=== PATIENT | female | born 1950 | race Caucasian/White ===

== ENCOUNTER 2022-04-14 11:35 | Emergency (ER) | payer BC, SELFPAY ==
[2022-04-14 12:10] VITALS: BP 128/79; PULSE 65; RESP 16; TEMP 36.4; O2SAT 95; BMI 36.1
--- NOTE | 2022-04-14 12:46 | CRLHL7_ITS ---
For Patients: As a result of the Century Cures Act, medical imaging exams and procedure reports are released immediately into your electronic medical record. You may view this report before your referring provider. If you have questions, please contact your health care provider. INDICATION: Right upper quadrant abdomen pain. TECHNIQUE: Ultrasound abdomen limited. Sonographic images of the right upper quadrant were obtained using roman-scale and color Doppler images. COMPARISON: None. FINDINGS: Liver: Normal in size with increased echotexture. No suspicious masses. No intrahepatic biliary dilatation. Gallbladder: No stones or sludge. Normal wall thickness. No pericholecystic fluid. Common bile duct: 1 cm. Pancreas: Partially obscured due to bowel gas artifact. Right kidney: Normal in size. Normal echotexture and cortex. No suspicious masses, stones, or hydronephrosis. Vasculature: Proximal abdominal aorta and IVC are unremarkable. IMPRESSION: 1. The common bile duct measures 1 cm which is borderline prominent. Recommend correlation with laboratory data. 2. No evidence of acute cholecystitis. 3. Hepatic steatosis. Dictated by Yung Menon MD @ 04/14/2022 3:03:35 PM (Electronically Signed)
[2022-04-14 13:16] LABS: Basophils Absolute Auto 0.06 K/uL (0.00-0.30); Eosinophils Percent Auto 5.1 % (0.0-7.0); Hematocrit 38.9 % (33.0-51.0); Hemoglobin* 12.8 gm/dL (12.0-16.0); Lymphocytes Percent Auto 47.2 % (20-44); Mean Corpuscular HGB Conc 33 gm/dL (32-36); Mean Corpuscular Hemoglobin 31 pg (26-34); Mean Corpuscular Volume 94 fL (80-100); Monocytes Percent Auto 10.1 % (0.0-11.0); Neutrophils Percent Auto 36.6 % (42.0-72.0); Platelet Count* 256 K/uL (140-440); RDW Coefficient of Variation % 13.2 % (11.5-15.5); Red Blood Count 4.14 m/uL (4.00-5.20); Slide Review Reflex No; White Blood Count* 5.83 K/uL (4.50-11.00)
[2022-04-14 13:29] LABS: Albumin* 4.3 g/dL (3.3-5.0); Chloride* 105 mmol/L (96-114); Potassium* 4.4 mmol/L (3.6-5.1); Sodium* 137 mmol/L (135-149)
[2022-04-14 13:31] LABS: Creatinine* 0.8 mg/dL (0.5-1.5); Est. Creatinine Clearance* 37.06; Estimated Glomerular Filt Rate 79 ml/min
[2022-04-14 13:32] LABS: Alanine Aminotransferase* 40 U/L (4-35); Alkaline Phosphatase* 69 U/L (40-150); Aspartate Amino Transferase* 40 U/L (12-35); Bilirubin Direct* 0.1 mg/dL (0.0-0.5); Bilirubin Total* 0.5 mg/dL (0.1-1.5); Blood Urea Nitrogen* 17 mg/dL (7-30); Calcium* 9.3 mg/dL (8.4-10.6); Carbon Dioxide* 23 mmol/L (20-32); Glucose* 93 mg/dL (60-115); Lipase* 76 U/L (23-300); Total Protein* 7.1 g/dL (6.0-8.3)
[2022-04-14 13:35] LABS: C Reactive Protein* 0.6 mg/dL (0.5-1.0)
[2022-04-14 13:56] LABS: Troponin I* < 0.01 ng/mL (0.01-0.04)
[2022-04-14 14:00] LABS: Erythrocyte SedimentationRate* 10 mm/hr (2-20)
[2022-04-14 14:16] VITALS: BP 110/73; PULSE 63; RESP 18; TEMP 37; O2SAT 96
--- NOTE | 2022-04-14 15:17 | ED_ITS ---
HPI - General Adult General Chief complaint: Abdominal Pain Stated complaint: RUQ pain Time Seen by Provider: 04/14/22 12:35 Source: patient Mode of arrival: ambulatory Limitations: no limitations History of Present Illness HPI narrative: Car[place] 71-year-old female coming in today concerned about abdominal pain that she noticed this morning when she woke up. Pain is located in the right upper quadrant of the abdomen and does not radiate. Nothing seems to make it better or worse. It was constant in the morning and then in the early afternoon it would come and go. She did not eat anything today. She had [place] food for dinner last night. She denies nausea or vomiting. No fevers or chills. No diarrhea or constipation. No changes in her urinary habits. No new physical activities that she is aware of. The pain is bad enough that she notices it, not bad enough that it keeps her from doing any her daily activities. She states that she does have a history of fatty liver disease nonalcoholic, hiatal hernia, ocular migraines, hyperlipidemia, hypertension. She denies any intra-abdominal surgeries in the past. Related Data Home Medications Medication Instructions Recorded Confirmed bupropion HCl 150 mg 24 hr tablet, mg PO 04/14/22 extended release escitalopram oxalate 20 mg tablet mg 04/14/22 estradiol 0.01% (0.1 mg/gram) vaginal 04/14/22 vaginal cream lisinopril 5 mg tablet mg 04/14/22 omeprazole 20 mg capsule,delayed mg 04/14/22 release propranolol 20 mg tablet mg 04/14/22 simvastatin 40 mg tablet mg 04/14/22 Allergies Allergy/AdvReac Type Severity Reaction Status Date / Time clarithromycin [From Biaxin] Allergy Verified 04/14/22 12:09 codeine Allergy Verified 04/14/22 12:09 Review of Systems Status of ROS: Reports: 10 or more systems reviewed and unremarkable except as noted in History and below PFSH PFS Social History Smoking Status: Never smoker Do you use any of these nicotine containing products: None Second hand tobacco smoke exposure: No How often do you have a drink containing alcohol: 2-3 times a week How many standard drinks containing alcohol do you have on a typical day: 1 or 2 How often do you have six or more drinks on one occasion: Never AUDIT-C Alcohol total score: 3 Non-prescribed substance use: denies use service: No Exam Narrative: Exam Narrative: Well-nourished well-developed patient in no acute distress. Alert and oriented. Answers questions appropriately. Mood and affect are appropriate. Thoughts are goal oriented and rational. No tangential or magical thinking noted. Patient speaks in full sentences without needing to catch her breath. She does not appear ill or toxic. HEENT: Normocephalic atraumatic. Pupils are equally round reactive to light. Extraocular muscles are intact. Conjunctivae are moist without any icterus noted. Moist mucous membranes. Posterior pharynx is normal. Neck is soft without any lymphadenopathy or thyromegaly. No masses are appreciated. Cardiovascular: Heart is regular rate and rhythm S1 and S2 are present without any murmurs. Lungs: Clear to auscultation bilaterally no wheezes rhonchi or rales are appreciated. Patient takes deep breaths without any discomfort. Her pain is not reproducible on deep inspirations. Abdomen: Soft and nontender nondistended with normal bowel sounds. No guarding or rebound. No masses or organomegaly appreciated. Negative Hamlin sign. I cannot reproduce her pain on palpation of the abdomen. She has no CVA tenderness. Extremities: Bilateral lower extremities are without edema. Normal DP and PT pulses. Skin: Well perfused without any obvious rashes. Const: Vital Signs, click to edit/add: Vital Signs - 24 hr 04/14/22 12:10 04/14/22 14:16 Temperature 97.5 F L 98.6 F Pulse Rate [Right Pulse Oximeter] 65 63 Respiratory Rate 16 18 Blood Pressure [Ri ght Upper Arm] 128/79 110/73 Pulse Oximetry 95 96 Oxygen Delivery Me thod Room Air Room Air Course Course Hospital Course: Workup today included labs, EKG, right upper quadrant ultrasound and chest x-ray-all were within normal limits. Vital Signs Vital signs: Initial Vital Signs Temperature 97.5 F L 04/14/22 12:10 Temperature Source Temporal Artery Scan 04/14/22 12:10 Pulse Rate 65 04/14/22 12:10 Respiratory Rate 16 04/14/22 12:10 Blood Pressure 128/79 04/14/22 12:10 Blood Pressure Mean 95 04/14/22 12:10 Blood Pressure Position Sitting 04/14/22 12:10 Pulse Oximetry 95 04/14/22 12:10 Oxygen Delivery Method 04/14/22 12:10 Vital Signs Temperature 97.5 F L 04/14/22 12:10 Pulse Rate 65 04/14/22 12:10 Respiratory Rate 16 04/14/22 12:10 Blood Pressure 128/79 04/14/22 12:10 Pulse Oximetry 95 04/14/22 12:10 Oxygen Delivery Method 04/14/22 12:10 Temperature 98.6 F 04/14/22 14:16 Pulse Rate 63 04/14/22 14:16 Respiratory Rate 18 04/14/22 14:16 Blood Pressure 110/73 04/14/22 14:16 Pulse Oximetry 96 04/14/22 14:16 Oxygen Delivery Method 04/14/22 14:16 Medical Decision Making MDM Narrative Medical decision making narrative: 71-year-old female with right upper quadrant discomfort, workup unremarkable. We discussed the possibility of gallbladder dysfunction-recommend she follow up with primary care provider to discuss doing a HIDA scan. Discussed return to the ER if the pain gets worse, she develops vomiting or fever. Patient was agreeable with everything we discussed him had no other questions. Medical Records Medical records reviewed: Yes I reviewed the patient's medical records Lab Data Lab results reviewed: Yes I reviewed the patient's lab results Labs: Lab Results 04/14/22 04/14/22 04/14/22 Range/Units 12:58 12:58 12:58 WBC 5.83 (4.50-11.00) K/uL RBC 4.14 (4.00-5.20) m/uL Hgb 12.8 (12.0-16.0) gm/dL Hct 38.9 (33.0-51.0) % MCV 94 (80-100) fL MCH 31 (26-34) pg MCHC 33 (32-36) gm/dL RDW Coeff of Fawad 13.2 (11.5-15.5) % Plt Count 256 (140-440) K/uL Neut % (Auto) 36.6 L (42.0-72.0) % Lymph % (Auto) 47.2 H (20-44) % [place] % (Auto) 10.1 (0.0-11.0) % Eos % (Auto) 5.1 (0.0-7.0) % Baso % (Auto) 1.0 (0.0-3.0) % Neut # (Auto) 2.10 (1.7-7.0) K/uL Lymph # (Auto) 2.80 (0.90-2.90) K/uL [place] # (Auto) 0.60 (0.00-0.90) K/UL Eos # (Auto) 0.30 (0.00-0.50) K/uL Baso # (Auto) 0.06 (0.00-0.30) K/uL Abs Immat Gran (auto) 0.00 (0.00-0.30) K/uL ESR 10 (2-20) mm/hr Sodium 137 (135-149) mmol/L Potassium 4.4 (3.6-5.1) mmol/L Chloride 105 (96-114) mmol/L Carbon Dioxide 23 (20-32) mmol/L BUN 17 (7-30) mg/dL Creatinine 0.8 (0.5-1.5) mg/dL Estimated Creat Clear 37.06 Estimated GFR 79 ml/min Glucose 93 (60-115) mg/dL Lactate (0.5-1.9) mmol/L Calcium 9.3 (8.4-10.6) mg/dL Total Bilirubin 0.5 (0.1-1.5) mg/dL Direct Bilirubin 0.1 (0.0-0.5) mg/dL AST 40 H (12-35) U/L ALT 40 H (4-35) U/L Alkaline Phosphatase 69 (40-150) U/L Troponin I < 0.01 L (0.01-0.04) ng/mL C-Reactive Protein 0.6 (0.5-1.0) mg/dL Total Protein 7.1 (6.0-8.3) g/dL Albumin 4.3 (3.3-5.0) g/dL Lipase 76 (23-300) U/L 04/14/22 Range/Units 12:58 WBC (4.50-11.00) K/uL RBC (4.00-5.20) m/uL Hgb (12.0-16.0) gm/dL Hct (33.0-51.0) % MCV (80-100) fL MCH (26-34) pg MCHC (32-36) gm/dL RDW Coeff of Fawad (11.5-15.5) % Plt Count (140-440) K/uL Neut % (Auto) (42.0-72.0) % Lymph % (Auto) (20-44) % [place] % (Auto) (0.0-11.0) % Eos % (Auto) (0.0-7.0) % Baso % (Auto) (0.0-3.0) % Neut # (Auto) (1.7-7.0) K/uL Lymph # (Auto) (0.90-2.90) K/uL [place] # (Auto) (0.00-0.90) K/UL Eos # (Auto) (0.00-0.50) K/uL Baso # (Auto) (0.00-0.30) K/uL Abs Immat Gran (auto) (0.00-0.30) K/uL ESR (2-20) mm/hr Sodium (135-149) mmol/L Potassium (3.6-5.1) mmol/L Chloride (96-114) mmol/L Carbon Dioxide (20-32) mmol/L BUN (7-30) mg/dL Creatinine (0.5-1.5) mg/dL Estimated Creat Clear Estimated GFR ml/min Glucose (60-115) mg/dL Lactate 1.0 (0.5-1.9) mmol/L Calcium (8.4-10.6) mg/dL Total Bilirubin (0.1-1.5) mg/dL Direct Bilirubin (0.0-0.5) mg/dL AST (12-35) U/L ALT (4-35) U/L Alkaline Phosphatase (40-150) U/L Troponin I (0.01-0.04) ng/mL C-Reactive Protein (0.5-1.0) mg/dL Total Protein (6.0-8.3) g/dL Albumin (3.3-5.0) g/dL Lipase (23-300) U/L Imaging Data US - abdomen: Attestation: I have reviewed the pertinent imaging results. Radiologist's impression: FINDINGS: Liver: Normal in size with increased echotexture. No suspicious masses. No intrahepatic biliary dilatation. Gallbladder: No stones or sludge. Normal wall thickness. No pericholecystic fluid. Common bile duct: 1 cm. Pancreas: Partially obscured due to bowel gas artifact. Right kidney: Normal in size. Normal echotexture and cortex. No suspicious masses, stones, or hydronephrosis. Vasculature: Proximal abdominal aorta and IVC are unremarkable. IMPRESSION: 1. The common bile duct measures 1 cm which is borderline prominent. Recommend correlation with laboratory data. 2. No evidence of acute cholecystitis. 3. Hepatic steatosis. ECG Data Attestation: I personally reviewed and interpreted this ECG as follows: (Normal sinus rhythm, pulse 63, low voltage) Discharge Plan Discharge Clinical Impression: Abdominal pain Patient Disposition: Home, Self-Care Condition: Stable Additional Instructions: Follow-up with your primary care provider to discuss doing a gallbladder function test. Return to the ER if you develop fever, vomiting or worsening pain. Prescriptions: No Action simvastatin 40 mg tablet omeprazole 20 mg capsule,delayed release(DR/EC) lisinopril 5 mg tablet estradiol 0.01 % (0.1 mg/gram) cream VAGINAL propranolol 20 mg tablet escitalopram oxalate 20 mg tablet bupropion HCl 150 mg tablet extended release 24 hr PO Follow Up/Referrals: Provider,Not a Local [Primary Care Provider] - Stand Alone Forms: [employer] Info Instructions
--- NOTE | 2022-04-14 15:20 | CRLHL7_ITS ---
For Patients: As a result of the Century Cures Act, medical imaging exams and procedure reports are released immediately into your electronic medical record. You may view this report before your referring provider. If you have questions, please contact your health care provider. INDICATION: RUQ PAIN TECHNIQUE: Chest 1 views. COMPARISON: None. FINDINGS: Cardiovascular and mediastinum: Heart size and vasculature are normal in caliber and appearance. Lungs and pleural spaces: Lungs are clear. No sign of infiltrate. No sign of pleural effusion. No pneumothorax. Bones and soft tissues: No significant findings. IMPRESSION: No acute or significant findings. Dictated by Yung Menon MD @ 04/14/2022 4:22:17 PM (Electronically Signed)
== END 2022-04-14 15:57 | disposition home or self-care (01) ==
PROVIDERS: Emergency Provider Family Medicine
DX: R10.11 Right upper quadrant pain (principal)
CPT/HCPCS: 36415; 71045; 76705; 80048; 80076; 83605; 83690; 84484; 85025; 85651; 86140; 93005; 99284

== ENCOUNTER 2022-05-09 16:18 | Emergency (ER) | payer BC, SELFPAY ==
[2022-05-09 16:21] VITALS: BP 125/77; PULSE 68; RESP 16; TEMP 36.2; O2SAT 98; BMI 34.8
--- NOTE | 2022-05-09 16:32 | ED.GENADULT ---
HPI - General Adult General Time Seen by Provider: 16:33 Date Seen: 05/09/22 Chief complaint: Dizziness/Vertigo Stated complaint: Dizzy Spells Time Seen by Provider: 05/09/22 16:31 Source: patient and RN notes reviewed Mode of arrival: ambulatory Limitations: no limitations History of Present Illness HPI narrative: Patient is coming in with 2 episodes of spinning. One happened yesterday while she was walking and the other happened when she was laying down in bed to take a nap. It is a spinning sensation., these episodes lasted about 20-30 seconds. She is not currently experiencing the vertigo. She has treated hypertension. She does have ocular migraines where she will see abnormalities in her vision with the migraine. She is on propranolol for this but did have to cut the dose down as she is running out of it. She is scheduled to see somebody this coming Tuesday. 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 She states this is stressful. No fevers chills, no cough or cold symptoms. She does not note any hearing changes, no tinnitus, no loss of hearing. There was no other focal deficits noted in neurovascular status. No numbness tingling weakness. She did not note any sense of irregular heartbeat or palpitations. She is quite concerned because many family members have of strokes. Related Data Home Medications Medication Instructions Recorded Confirmed bupropion HCl 150 mg 24 hr tablet, mg PO 04/14/22 extended release escitalopram oxalate 20 mg tablet 20 mg .3 times week 04/14/22 estradiol 0.01% (0.1 mg/gram) vaginal 04/14/22 vaginal cream lisinopril 5 mg tablet 5 mg DAILY 04/14/22 omeprazole 20 mg capsule,delayed 20 mg DAILY 04/14/22 release propranolol 20 mg tablet 20 mg BID 04/14/22 simvastatin 40 mg tablet 20 mg HS 04/14/22 Previous Rx's Medication Instructions Recorded propranolol 20 mg tablet 20 mg PO BID #14 tabs 05/09/22 Allergies Allergy/AdvReac Type Severity Reaction Status Date / Time acetaminophen [From Vicodin] Allergy Unknown Rash and Verified 05/09/22 16:30 Itching amoxicillin Allergy Unknown Nausea Verified 05/09/22 16:30 erythromycin base Allergy Unknown Nausea Verified 05/09/22 16:30 hydrocodone [From Vicodin] Allergy Unknown Rash and Verified 05/09/22 16:30 Itching clarithromycin [From Biaxin] Allergy Verified 05/09/22 16:30 codeine Allergy Verified 05/09/22 16:30 Review of Systems Status of ROS: Reports: 10 or more systems reviewed and unremarkable except as noted in History and below [facility] Medical History (Updated 05/09/22 @ 17:25 by Melissa Denny MD) Depression Hepatic steatosis Hiatal hernia History of abnormal electrocardiogram (04/14/22) History of thyroiditis Hyperlipidemia Hypertension Ocular migraine Osteopenia Surgical History (Updated 05/06/22 @ 11:47 by Karmen Groves) History of D&C History of suburethral sling procedure (2008) Social History Smoking Status: Never smoker Do you use any of these nicotine containing products: None Second hand tobacco smoke exposure: No How often do you have a drink containing alcohol: 2-3 times a week How many standard drinks containing alcohol do you have on a typical day: 1 or 2 How often do you have six or more drinks on one occasion: Never AUDIT-C Alcohol total score: 3 Non-prescribed substance use: denies use service: No Exam Const: Vital Signs, click to edit/add: Vital Signs - 24 hr 05/09/22 16:21 05/09/22 17:54 05/09/22 17:57 Temperature 97.1 F L Pulse Rate 70 Pulse Rate [Right Pulse Oximeter] 68 Respiratory Rate 16 Blood Pressure Blood Pressure [Ri ght Upper Arm] 125/77 Pulse Oximetry 98 95 96 Oxygen Delivery Me thod Room Air 05/09/22 18:00 05/09/22 18:35 Temperature Pulse Rate 66 66 Pulse Rate [Right Pulse Oximeter] Respiratory Rate 14 Blood Pressure 120/80 Blood Pressure [Ri ght Upper Arm] Pulse Oximetry 94 96 Oxygen Delivery Me thod Documenting provider has reviewed patient's vital signs: yes Common normals: no apparent distress, average body habitus, oriented x3, no limitations, healthy appearing, alert and well nourished General appearance: cooperative, comfortable and well kempt HENMT: Common normals: normocephalic, head/scalp atraumatic, hearing grossly normal bilaterally, external ears normal, EAC's normal, TM's normal bilaterally, external nose normal, nasal mucous membranes and turbinates normal, moist oral mucous membranes, oropharynx normal, dentition normal and gingiva normal Head and scalp: normocephalic and atraumatic Nose: external nose normal and nasal mucous membranes and turbinates normal External ear: external ears normal External auditory canal: EAC's normal Tympanic membrane: TM's normal bilaterally Eye: Common normals: PERRL, EOMs intact bilaterally, conjunctivae normal and no scleral icterus Conjunctiva: conjunctiva(e) normal Pupil: PERRL Neck & C-Spine: Common normals: full ROM, no lymphadenopathy, supple, no meningeal signs, no JVD and thyroid normal Thyroid: thyroid normal Resp: Common normals: normal respiratory effort, no retractions, no use of accessory muscles and clear to auscultation bilaterally Auscultation: clear to auscultation bilaterally Cardio: Common normals: no JVD, regular rate, regular rhythm, S1 normal heart sound, S2 normal heart sound, no gallops, no clicks and no murmurs Rate: regular rate Rhythm: regular rhythm Heart sounds: S1 normal and S2 normal GI: Common normals: Normal to inspection, nondistended, normoactive bowel sounds present, soft to palpation, non-tender, no hepatosplenomegaly and no masses Palpation: soft and no hepatosplenomegaly Extremity: Common normals: normal to inspection, full ROM, normal capillary refill, no joint enlargement, no clubbing, cyanosis or edema, no calf tenderness and no pedal edema Neuro: Gricelda Coma Scale: document GCS findings Sixes coma scale eye opening: Spontaneous (4) Sixes coma scale verbal response: Orientated (5) Sixes coma scale motor response: Obey commands (6) Gricelda coma scale total score: 15 Common normals: oriented x3, CN's II-XII intact bilaterally, moves all extremities, no focal motor deficits, no sensory deficits noted and gait normal Sensorium/orientation: alert Meningeal signs: no meningeal signs Cranial nerves: HiNTS Head impulse: normal Nystagmus: unidirectional (Left beating, horizontal) Skew: normal Coordination/balance: ojexlq-ux-[id number] test normal, yqch-gr-pspr test normal and Normal rapid alternating movements of the distal upper extremity present (Neuro) Speech: speech normal Gait (neuro): normal gait Motor exam: strength 5/5 throughout, no tremor noted, no asterixis, no fasciculations, muscle tone normal throughout and no movement abnormalities noted Coordination: yekzuo-qf-ccbk test normal, jydf-zb-mrdg test normal and rapid alternating movement UE normal Psych: Appearance: well kempt Course Course Hospital Course: Have reviewed with this patient the difference between central and peripheral vertigo. She is quite concerned about a stroke as many family members have from strokes. Reviewed with her that the imaging we can do at this time is a CT followed by a CT angiogram of head neck. I think her history is consistent with peripheral vertigo probable benign positional vertigo. She really would like further testing. Thus I will order the head imaging and do labs. Will give her 25 mg meclizine here. She currently is asymptomatic. She has only had 2 spells lasting 20-30 seconds and have reviewed with her that this really does seem to be most consistent with a peripheral process. Reevaluation(s) Reevaluation #1: Reviewed with patient the normal head CT and the normal CTA of her head and neck. Labs are normal as far as electrolytes and TSH. She is out of her propranolol, thing she only has a half tablet left. All pharmacies are currently closed and this is not something that is dispensed from [facility]. We will give her a 20 mg tablet here tonight and then I will send in a script for enough to get her through until she follows up with her primary care provider. Time: 18:40 Vital Signs Vital signs: Initial Vital Signs Temperature 97.1 F L 05/09/22 16:21 Temperature Source Temporal Artery Scan 05/09/22 16:21 Pulse Rate 68 05/09/22 16:21 Respiratory Rate 16 05/09/22 16:21 Blood Pressure 125/77 05/09/22 16:21 Blood Pressure Mean 93 05/09/22 16:21 Blood Pressure Position Sitting 05/09/22 16:21 Pulse Oximetry 98 05/09/22 16:21 Oxygen Delivery Method 05/09/22 16:21 Vital Signs Temperature 97.1 F L 05/09/22 16:21 Pulse Rate 68 05/09/22 16:21 Respiratory Rate 16 05/09/22 16:21 Blood Pressure 125/77 05/09/22 16:21 Pulse Oximetry 98 05/09/22 16:21 Oxygen Delivery Method 05/09/22 16:21 Temperature 97.1 F L 05/09/22 16:21 Pulse Rate 66 05/09/22 18:35 Respiratory Rate 14 05/09/22 18:35 Blood Pressure 120/80 05/09/22 18:35 Pulse Oximetry 96 05/09/22 18:35 Oxygen Delivery Method 05/09/22 16:21 Medical Decision Making Lab Data Lab results reviewed: Yes I reviewed the patient's lab results Labs: Lab Results 05/09/22 05/09/22 05/09/22 Range/Units 17:15 17:15 17:15 WBC 8.07 (4.50-11.00) K/uL RBC 4.09 (4.00-5.20) m/uL Hgb 12.7 (12.0-16.0) gm/dL Hct 38.6 (33.0-51.0) % MCV 94 (80-100) fL MCH 31 (26-34) pg MCHC 33 (32-36) gm/dL RDW Coeff of Fawad 13.0 (11.5-15.5) % Plt Count 232 (140-440) K/uL Neut % (Auto) 48.5 (42.0-72.0) % Lymph % (Auto) 38.4 (20-44) % Whiteside % (Auto) 8.3 (0.0-11.0) % Eos % (Auto) 3.5 (0.0-7.0) % Baso % (Auto) 0.9 (0.0-3.0) % Neut # (Auto) 3.92 (1.7-7.0) K/uL Lymph # (Auto) 3.10 H (0.90-2.90) K/uL Whiteside # (Auto) 0.70 (0.00-0.90) K/UL Eos # (Auto) 0.28 (0.00-0.50) K/uL Baso # (Auto) 0.07 (0.00-0.30) K/uL Abs Immat Gran (auto) 0.03 (0.00-0.30) K/uL Sodium 136 (135-149) mmol/L Potassium 4.2 (3.6-5.1) mmol/L Chloride 104 (96-114) mmol/L Carbon Dioxide 22 (20-32) mmol/L BUN 21 (7-30) mg/dL Creatinine 0.9 (0.5-1.5) mg/dL Estimated Creat Clear 37.06 Estimated GFR 68 ml/min Glucose 115 (60-115) mg/dL Calcium 9.5 (8.4-10.6) mg/dL Magnesium 1.9 (1.5-2.6) mg/dL Total Bilirubin 0.3 (0.1-1.5) mg/dL AST 38 H (12-35) U/L ALT 40 H (4-35) U/L Alkaline Phosphatase 75 (40-150) U/L C-Reactive Protein < 0.5 L (0.5-1.0) mg/dL Total Protein 6.9 (6.0-8.3) g/dL Albumin 4.3 (3.3-5.0) g/dL TSH 1.520 (0.270-4.200) uIU/mL Imaging Data CT scan - head: Attestation: I have reviewed the pertinent imaging results. Radiologist's impression: Patient: RACHEL MACEDO Facility:?[facility] Patient ID:?[id number] Site Patient ID:?[id number]. Site :?1950 Study:?CT Head without-05/09/2022 5:52:19 PM Ordering Physician:Gio Torres Final Report: INDICATION: Vertigo. TECHNIQUE: Noncontrast axial images. Sagittal and coronal reconstructions. COMPARISON: None. FINDINGS: There is no abnormal intracranial mass effect or midline shift. No acute intracanal hemorrhage. No areas of abnormal attenuation are seen with the brain. CSF spaces are age-appropriate. No acute osseous abnormality is identified. Visualized paranasal sinuses and the mastoids are clear. IMPRESSION: No CT evidence of an acute intracranial abnormality. Please note that all CT scans at this facility use dose modulation, iterative reconstruction, and/or weight-based dosing when appropriate to reduce radiation dose to as low as reasonably achievable. Dictated by Barry Bethea MD @ 05/09/2022 6:26:13 PM (Electronic Signature) CT angio head: Attestation: I have reviewed the pertinent imaging results. Radiologist's impression: Patient: RACHEL MACEDO Facility:?[facility] Patient ID:?[id number] Site Patient ID:?[id number]. Site :?1950 Study:?CT Head Angio Non acute-05/09/2022 5:54:26 PM Ordering Physician:?Eduin Torres Preliminary Report: PRELIMINARY IMPRESSION: 1. No significant stenosis or occlusion of the major intracranial arteries. 2. Full report to follow. Dictated by Barry Bethea MD @ 05/09/2022 6:29:15 PM Read by:?Barry Bethea MD @ 05/09/2022 18:29:20 CT angio neck: Attestation: I have reviewed the pertinent imaging results. Radiologist's impression: Patient: RACHEL MACEDO Facility:?[facility] Patient ID:?[id number] Site Patient ID:?[id number]. Site :?1950 Study:?CT Neck Angio Angio Non acute-05/09/2022 5:55:40 PM Ordering Physician:?Eduin Torres Preliminary Report: PRELIMINARY IMPRESSION: 1. No significant stenosis or occlusion of the major cervical arteries. 2. Full report to follow. Dictated by Barry Bethea MD @ 05/09/2022 6:31:50 PM Read by:?Barry Bethea MD @ 05/09/2022 18:32:50 ECG Data Attestation: I personally reviewed and interpreted this ECG as follows: (Sinus rhythm, 72 beats per minute, normal EKG, QT corrected 413 milliseconds.) Prior ECG tracings: not available for review Critical Care Time Critical Care Time Critical Care Time: No Discharge Plan Discharge Clinical Impression: Vertigo Patient Disposition: Home, Self-Care Condition: Stable Instructions: Vertigo (ED), Benign Paroxysmal Positional Vertigo (ED) Additional Instructions: Review handouts. Recommend getting a physical therapy referral when you follow-up this week in clinic. If you are becoming more symptomatic with increasing spells, can certainly try meclizine which is [id number]. Follow bottle directions for meclizine. Activity Level: Activity as Tolerated Prescriptions: New propranolol 20 mg tablet 20 mg PO BID Qty: 14 0RF No Action simvastatin 40 mg tablet 20 mg HS omeprazole 20 mg capsule,delayed release(DR/EC) 20 mg DAILY lisinopril 5 mg tablet 5 mg DAILY estradiol 0.01 % (0.1 mg/gram) cream VAGINAL propranolol 20 mg tablet 20 mg BID escitalopram oxalate 20 mg tablet 20 mg .3 times week bupropion HCl 150 mg tablet extended release 24 hr PO Follow Up/Referrals: Naren Crandall MD [Primary Care Provider] - Stand Alone Forms: [employer] Info Instructions
--- NOTE | 2022-05-09 17:06 | CT_ITS ---
Patient: RACHEL MACEDO Facility:?[facility] Patient ID:?[id number] Site Patient ID:?[id number]. Site :?1950 Study:?CT-Neck Angio Angio Non acute-05/09/2022 5:55:40 PM Ordering Physician:Gio Torres Final Report: INDICATION: Vertigo. TECHNIQUE: CTA neck with contrast bolus tracking and 3D MIP reconstruction. FINDINGS: There is minor carotid atherosclerosis. There is marked tortuosity of the cervical vasculature with redundancy of the right ICA. There is no significant carotid or vertebral artery stenosis or dissection. The soft tissues of the neck are within normal limits. Degenerative changes are noted in the cervical spine. IMPRESSION: No significant carotid or vertebral artery stenosis or dissection. Please note that all CT scans at this facility use dose modulation, iterative reconstruction, and/or weight-based dosing when appropriate to reduce radiation dose to as low as reasonably achievable. Dictated by Ishan Hearn MD @ 05/10/2022 8:37:29 AM Signed by:?Ishan Hearn MD @05/10/2022 8:37:29 AM (Electronic Signature)
--- NOTE | 2022-05-09 17:06 | CRLHL7_ITS ---
For Patients: As a result of the Century Cures Act, medical imaging exams and procedure reports are released immediately into your electronic medical record. You may view this report before your referring provider. If you have questions, please contact your health care provider. INDICATION: Vertigo. TECHNIQUE: Noncontrast axial images. Sagittal and coronal reconstructions. COMPARISON: None. FINDINGS: There is no abnormal intracranial mass effect or midline shift. No acute intracanal hemorrhage. No areas of abnormal attenuation are seen with the brain. CSF spaces are age-appropriate. No acute osseous abnormality is identified. Visualized paranasal sinuses and the mastoids are clear. IMPRESSION: No CT evidence of an acute intracranial abnormality. Please note that all CT scans at this facility use dose modulation, iterative reconstruction, and/or weight-based dosing when appropriate to reduce radiation dose to as low as reasonably achievable. Dictated by Barry Bethea MD @ 05/09/2022 6:26:13 PM (Electronically Signed)
--- NOTE | 2022-05-09 17:06 | CT_ITS ---
Patient: RACHEL MACEDO Facility:?[facility] Patient ID:?[id number] Site Patient ID:?[id number]. Site :?1950 Study:?CT-Head Angio Non acute-05/09/2022 5:54:26 PM Ordering Physician:Gio Torres Final Report: INDICATION: Vertigo. TECHNIQUE: CTA head with contrast bolus tracking and 3D MIP reconstruction. FINDINGS: There is normal opacification of the intracranial vasculature. There is no large vessel occlusion. No aneurysm is identified. IMPRESSION: Unremarkable head CTA. Please note that all CT scans at this facility use dose modulation, iterative reconstruction, and/or weight-based dosing when appropriate to reduce radiation dose to as low as reasonably achievable. Dictated by Ishan Hearn MD @ 05/10/2022 8:35:16 AM Signed by:?Ishan Hearn MD @05/10/2022 8:35:16 AM (Electronic Signature)
[2022-05-09 17:26] LABS: Basophils Absolute Auto 0.07 K/uL (0.00-0.30); Basophils Percent Auto 0.9 % (0.0-3.0); Eosinophils Absolute Auto 0.28 K/uL (0.00-0.50); Eosinophils Percent Auto 3.5 % (0.0-7.0); Hematocrit 38.6 % (33.0-51.0); Hemoglobin* 12.7 gm/dL (12.0-16.0); Immature Granulocytes Abs Auto 0.03 K/uL (0.00-0.30); Lymphocytes Percent Auto 38.4 % (20-44); Mean Corpuscular HGB Conc 33 gm/dL (32-36); Mean Corpuscular Hemoglobin 31 pg (26-34); Mean Corpuscular Volume 94 fL (80-100); Monocytes Percent Auto 8.3 % (0.0-11.0); Neutrophils Absolute Auto 3.92 K/uL (1.7-7.0); Neutrophils Percent Auto 48.5 % (42.0-72.0); Platelet Count* 232 K/uL (140-440); Red Blood Count 4.09 m/uL (4.00-5.20); White Blood Count* 8.07 K/uL (4.50-11.00)
[2022-05-09 17:29] LABS: Slide Review Reflex No
[2022-05-09 17:38] LABS: Albumin* 4.3 g/dL (3.3-5.0); Chloride* 104 mmol/L (96-114)
[2022-05-09 17:39] LABS: Potassium* 4.2 mmol/L (3.6-5.1); Sodium* 136 mmol/L (135-149)
[2022-05-09 17:41] LABS: Creatinine* 0.9 mg/dL (0.5-1.5); Est. Creatinine Clearance* 37.06; Estimated Glomerular Filt Rate 68 ml/min
[2022-05-09 17:42] LABS: Alanine Aminotransferase* 40 U/L (4-35); Alkaline Phosphatase* 75 U/L (40-150); Aspartate Amino Transferase* 38 U/L (12-35); Bilirubin Total* 0.3 mg/dL (0.1-1.5); Blood Urea Nitrogen* 21 mg/dL (7-30); Calcium* 9.5 mg/dL (8.4-10.6); Carbon Dioxide* 22 mmol/L (20-32); Glucose* 115 mg/dL (60-115); Magnesium* 1.9 mg/dL (1.5-2.6); Total Protein* 6.9 g/dL (6.0-8.3)
[2022-05-09 17:50] LABS: C Reactive Protein* < 0.5 mg/dL (0.5-1.0)
[2022-05-09 17:54] VITALS: O2SAT 95
[2022-05-09 17:57] VITALS: PULSE 70; O2SAT 96
[2022-05-09] MEDS: MECLIZINE HCL 25 MG TABLET PO (17:57)
[2022-05-09 18:00] VITALS: PULSE 66; O2SAT 94
[2022-05-09 18:35] VITALS: BP 120/80; PULSE 66; RESP 14; O2SAT 96
[2022-05-09] MEDS: PROPRANOLOL 20 MG TABLET PO (19:00)
[2022-05-09 19:02] VITALS: BP 125/77; PULSE 68; RESP 14; TEMP 36.2
== END 2022-05-09 19:02 | disposition home or self-care (01) ==
PROVIDERS: Emergency Provider Family Medicine; PCP Family Medicine
DX: R42 Dizziness and giddiness (principal)
CPT/HCPCS: 36415; 70450; 70496; 70498; 80053; 83735; 84443; 85025; 86140; 93005; 94761; 99284; 99285; A9270; Q9967

== ENCOUNTER 2022-05-14 11:46 | Outpatient (CLI) | payer BC, SELFPAY ==
[2022-05-14 13:25] LABS: Cholesterol* 217 mg/dL (90-199); HDL Cholesterol* 86 mg/dL (>=50); LDL Cholesterol Calculated 103 mg/dL (<100); Triglycerides* 139 mg/dL (40-149)
== END 2022-05-14 11:47 | disposition home or self-care (01) ==
PROVIDERS: PCP Family Medicine; Visit Provider Family Medicine
DX: Z00.00 Encounter for general adult medical examination without abnormal findings (principal); E78.5 Hyperlipidemia, unspecified; I10 Essential (primary) hypertension
CPT/HCPCS: 80061